=== PATIENT | male | born 1980 | race Caucasian/White ===

== ENCOUNTER 2019-08-19 20:29 | Emergency (ER) | payer OTHER ==
[~2019-08-19] VITALS: Ht 177.8 cm; Wt 75.5 kg
[2019-08-19 20:45] VITALS: BP 109/72
--- NOTE | 2019-08-19 20:55 | NUR ---
PT AMBULATED BACK TO LOBBY WITH STEADY GAIT. AWAITING AVAILABLE BED.
--- NOTE | 2019-08-19 21:11 | NUR ---
PT AMBULATED TO CHAIR A.
--- NOTE | 2019-08-19 21:24 | NUR ---
PT CAME TO ER FOR MED REFILL OF ZYPREXA. PT STATE HIS MEDS WERE IN HIS MOTHERS CARE AND IT GOT BROKEN INTO AND MEDS WERE STOLEN. PT HAS NOT TAKEN MEDICATIONS X1 WEEK,. STATES HE HAS A LOT GOING ON IN LIFE AND AND HAS BEEN ANXIOUS. PT IN CHAIR CALM, VSS. MEDHX: ANXIETY, DEPRESSION ALLERGIES: DENIES
--- NOTE | 2019-08-19 21:45 | NUR ---
PA WITH PT AT THIS TIME
[2019-08-19] MEDS ORDERED: LORazepam 1 MG TAB PO ONE (21:50)
--- NOTE | 2019-08-19 21:57 | NUR ---
Patient discharged with v/s stable. Written and verbal after care instructions given and explained. Patient alert, oriented and verbalized understanding of instructions. Ambulatory with to home. All questions addressed prior to discharge. ID band removed. Patient advised to follow up with PMD. Rx of ZYPREXA 10 MG given. Patient educated on indication of medication including possible reaction and side effects. Opportunity to ask questions provided and answered.
[2019-08-19 21:58] VITALS: BP 109/72
== END 2019-08-19 21:58 | disposition home or self-care (01) ==
LOC: MED 20:29
DX: F41.9 Anxiety disorder, unspecified (principal); F32.9 Major depressive disorder, single episode, unspecified; F17.210 Nicotine dependence, cigarettes, uncomplicated; Z76.0 Encounter for issue of repeat prescription
CPT/HCPCS: 99283